=== PATIENT | male | born 1965 | race Caucasian/White ===

== ENCOUNTER 2023-09-03 17:13 | Emergency (ER) | payer OTHER, SELFPAY ==
[2023-09-03 17:15] VITALS: BP 127/96; BMI 32.5
--- NOTE | 2023-09-03 19:59 | ED.GENMED ---
History of Present Illness
General
Chief Complaint: Nose Bleed
Source: patient and family (Son as foreign language interpreter)
Time Seen by Provider: 09/03/23 19:31
Travel History
Have you had any contact with someone who has COVID-19?: No
Do you have any symptoms of coronavirus? Fever > 100 degrees, chills, cough, shortness of breath, sore throat, loss of taste or smell, muscle aches, or headache?: No
History of Present Illness
History of Present Illness:
Patient with sinus surgery about 2 weeks ago. Ongoing bleeding since then. Was started on antibiotics 5 days ago. He more continuously the last 12 hours. No other symptoms. No thinners except for asked
Past History
Past History
ED Past Medical History: CAD
ED Past Surgical History: Cardiac (Cardiac stent)
Social History
Tobacco: Former smoker
Review of Systems
Review of Systems
All Other Systems: Not applicable
Phy Exam
Physical Exam
Physical Exam:
General: Nontoxic appearing in no distress
Skin: Warm and dry, no rash
Neuro: Alert, nontoxic, grossly nonfocal
Psychiatric: Good eye contact and appropriate
ENT: Mild oozing from the right nares. Patient blowing his nose frequently. No severe dripping of blood. Posterior pharynx clear. Both nares with postoperative mucosal changes. Airways are open.
Course
Vital Signs
Initial and Last Documented VS:
Initial Vital Signs
Pulse Resp BP Pulse Ox
68 16 127/96 98
09/03/23 17:15 09/03/23 17:15 09/03/23 17:15 09/03/23 17:15
Last Documented Vital Signs
Pulse Resp BP Pulse Ox
68 16 127/96 98
09/03/23 17:15 09/03/23 17:15 09/03/23 17:15 09/03/23 17:15
MDM/Problems Addressed
Differential Diagnosis Includes:
Reviewed with our ENT prior to placing a Merisel packing. Surgery was 2 weeks ago.
*Critical Care Note
Total Time (30-74mins, 75-104mins- exclusive of procedures): Not Applicable
Update Note
Update Note:
Rechecked prior to discharge. No active bleeding. Slightly pink Mirasol. Stable.
ED Attending Note
-
Portions of this chart may have been created with voice recognition software.� Occasional wrong word or��sound alike� substitutions may have occurred due to the inherent limitations of voice recognition software.
Discharge Plan
Departure
Patient Disposition: Home (Routine Discharge)
Date of Disposition: 09/03/23
Time of Disposition: 20:20
Patient with high blood pressure during this ER visit?: Yes
Discharge Problem:
Epistaxis
Instructions: Nosebleeds (DC), BLOOD PRESSURE
Referrals:
Jelly Martinez MD [Family Provider] -
Activity Restrictions/Additional Instructions:
Call your ENT doctor tomorrow for close follow-up
Interventions
Interventions:
*Risk Screen - Suicide Last Done: 09/03/23 17:15
*General Assessment Last Done: 09/03/23 19:16
*Neglect/Abuse Screening Last Done: 09/03/23 17:15
ED- Fall Risk Assessment Last Done: 09/03/23 17:15
*ED COVID-19 Vaccine History Last Done: 09/03/23 19:16
*Nursing Disposition Last Done: 09/03/23 20:22
ED-EENT Assessment Last Done: 09/03/23 19:16
Discharge Date and Time
Discharge Date/Time: 09/03/23 20:23
Print Language: CHADIAN
== END 2023-09-03 20:23 | disposition home or self-care (01) ==
LOC: EMR 17:13
PROVIDERS: EMERGENCY PHYSICIAN Emergency Medicine; FAMILY PHYSICIAN Family Medicine
DX: R04.0 Epistaxis (principal); I25.10 Atherosclerotic heart disease of native coronary artery without angina pectoris; Z87.891 Personal history of nicotine dependence; Z95.5 Presence of coronary angioplasty implant and graft
CPT/HCPCS: 99282

== ENCOUNTER 2024-01-08 22:04 | Observation (INO) | payer OTHER, SELFPAY ==
[2024-01-08] VITALS (11 sets, daily range): BP systolic 122–149; BP diastolic 86–123; BMI 30.4
[2024-01-08 16:44] LABS: % Basophils 0.6 % (0-2); % Eosinophils 1.7 % (0-6); % Immature Granulocytes 0.3 % (0-0.5); % Lymphocytes 28.9 % (20.5-51.1); % Monocytes 7.8 % (1.7-9.3); % Neutrophils 60.7 % (42.2-75.2); Absolute Eosinophils 0.1 10^3/uL (0-0.7); Absolute Lymphocytes 1.9 10^3/uL (1.2-3.4); Absolute Monocytes 0.5 10^3/uL (0.1-0.6); Hematocrit 38.2 % (39.0-52.0); Hemoglobin 12.8 g/dL (13.0-18.0); Mean Corp Hgb Conc. 33.5 g/dL (33.0-37.0); Mean Corpuscular Hgb 28.1 pg (27.0-31.0); Mean Platelet Volume 10.3 fL (7.4-10.4); Nucleated Red Blood Cells % 0 % (-); Platelet Count 236 10^3/uL (130-400); Red Blood Cell Count 4.55 10^6/uL (4.70-6.10); Red Cell Dist. Width 13.6 % (11.5-14.5); White Blood Cell Count 6.5 10^3/uL (4.8-10.8)
[2024-01-08 16:54] LABS: INR 1.13; PT 14.4 Sec (11.4-14.6)
[2024-01-08 16:55] LABS: APTT 30.2 Sec (23.4-35.0)
[2024-01-08 16:59] LABS: ALT (SGPT) 28 U/L (0-50); AST (SGOT) 26 U/L (17-59); Albumin 4.3 g/dl (3.5-5.0); Alkaline Phosphatase 80 U/L (38-126); Blood Urea Nitrogen 25 mg/dl (9-20); Calcium 9.2 mg/dl (8.4-10.2); Carbon Dioxide 24 mmol/L (22-30); Chloride 104 mmol/L (98-107); Glucose 203 mg/dl (70-99); Potassium 4.2 mmol/L (3.5-5.1); Sodium 140 mmol/L (135-145); Total Bilirubin 0.4 mg/dl (0.2-1.3); Total Protein 6.9 g/dl (6.3-8.2); eGFR > 60.00
[2024-01-08 17:36] LABS: Troponin I < 0.012 ng/ml
--- NOTE | 2024-01-08 19:48 | ED.GENMED ---
History of Present Illness
General
Chief Complaint: Chest Pain
Source: patient and family (Son sponge maker)
Exam Limitations: other (Language barrier)
Time Seen by Provider: 01/08/24 19:34
History of Present Illness
History of Present Illness:
This is a 58 year old male that comes in with c/o left sided chest pain. States that this has been constant for the past couple of days. Son states that he is under a lot of stress. States that when he picks something up he has trouble breathing
and has left chest pain. States that he feels that his whole left side gets weak due to the sharp pain and it was like when he had a heart attack. State that this has pain has been constant. States that he has a headache and he feels dizzy when he
stands up for a second. States that he has also been nauseated. Denies any fever, chills, SOB, abd pain, vomiting, diarrhea, urinary burning.
Past History
Past History
ED Past Medical History: CAD, HTN and MN
ED Past Surgical History: Cardiac (Cardiac stent X 3) and Other (Nasal surgery)
Social History
Tobacco: Vaping
Alcohol: None
Personal:
Living: with family
Review of Systems
Review of Systems
All Other Systems: ROS reviewed and negative except as documented in HPI and ROS
Constitutional: Reports no symptoms; Denies fever or chills
EENT: Reports no symptoms
Respiratory: Denies cough or trouble breathing
Cardiac: Reports chest pain
ABD/GI: Reports nausea; Denies abdominal pain, vomiting or diarrhea
: Reports no symptoms; Denies dysuria, frequency or urgency
Musculoskeletal: Reports no symptoms
Skin: Reports no symptoms
Neurological: Reports dizzy and headache
Psychiatric: Reports no symptoms
Phy Exam
General Physical Exam
General Presentation: no apparent distress
General age: appears stated age
General Skin: warm and dry
General Habitus: normal
General Mental: alert
General Hydration: appears well hydrated
ENT Exam
ENT Exam: TM's normal, pharynx normal and neck supple
Eye Exam
Eye Exam: EOMI
Cardiovascular Exam
Cardiovascular Exam: no edema, normal peripheral pulses, bradycardia and other (Left sided chest pain reproducible with palpation over the muscle)
Pulmonary Exam
Pulmonary Exam: lungs clear, no respiratory distress, no rales, chest non tender, no crackles, no rhonchi, no wheezing and no cough
Gastrointestinal Exam
Gastrointestinal Exam: normal bowel sounds, non tender, soft, no organomegaly, no pulsatile mass and non distended
Musculoskeletal Exam
Musculoskeletal Exam: full ROM and no edema
Skin Exam
Skin Exam: normal color, warm/dry, no rash and no petechia
Psychiatric Exam
Psychiatric Exam: normal mood/affect
Scores
Heart Score for Chest Pain Patients
STEMI patient?: No
History: Moderately Suspicious
ECG: Normal
Age: >45 - <65 years
Risk Factors: >/= 3 Risk Factors or History of CAD
Troponin: </= Normal Limit
Heart Score for Chest Pain Patients: 4
Heart Score Risk: 20.3% MACE over next 6 weeks
Course
Orders/Labs/Results
Orders:
Orders
01/08/24 Breakfast
Cholesterol Lowering
At Your Request: Limited, Die Repairer Forging Required
Cholesterol Lowering: Sodium, 2 Gram
01/08/24 16:09
ECG [Electrocardiogram (*1)] Urgent
Reason for Study: Chest Pain
EKG- Treatment ONCE
01/08/24 16:31
Complete Blood Count/With Diff Urgent
Comprehensive Metabolic Panel Urgent
D-Dimer Urgent
Comment: ADD ON
Glycohemoglobin (HgbA1c) Urgent
Protime/PTT Urgent
Troponin I Urgent
01/08/24 19:44
Add On- LAB Urgent
Tests Added?: d-dimer
01/08/24 19:47
CR Chest - 2 Views Urgent
Comment:
Reason For Exam: Chest pain
01/08/24 19:50
Acetaminophen [Tylenol] 1,000 mg PO NOW STA
Ketorolac [Toradol] 30 mg IV NOW STA
01/08/24 19:54
Electrocardiogram (*1) Urgent
Reason for Study: Chest Pain
Other Reason for Exam: Repeat with Troponin
EKG- Treatment ONCE
01/08/24 20:11
Troponin I Urgent
01/08/24 20:19
Aspirin 325 mg PO NOW STA
Nitroglycerin Sublingual [Nitrostat (Sublingual)] 0.4 mg SL [id number] PRN
01/08/24 20:24
Consult Cardiology [CARDIOLOGY CONSULT] Urgent
Consulting Provider: Cosmo Gomes
Was physician already notified: Yes
01/08/24 21:00
Admit/Transfer Patient As Directed
Co-Sign Provider:
Level of Care: Observation services
Assign to:: Telemetry
Physician / Group: gretchen
Diagnosis: chest pain
Reason for Telemetry: Chest Pain syndromes
Date to Stop Telemetry: 01/10/24
Time to Stop Telemetry: 11:00
PRN Pain Medication Management As Directed
May give lesser potent ordered pain med per pt: Yes
preference::
Protocol:: Medication orders for pain may be administered in a
manner that supports deferring to patient preference
when the pt is:
- Requesting an ordered lesser potent pain medication.
Least to most potent pain medications are defined
as: acetaminophen < NSAID < tramadol < opioids
(morphine, oxycodone, hydromorphone).
- Requesting a lesser dose of the same medication IF
ORDERED.
- Requesting a less intrusive route of administration
if both routes are prescribed by the provider (PO <
IV).
01/08/24 21:01
Code Status As Directed
Resuscitation Status: Full Code
01/08/24 22:28
Activity As Directed
Activity Level: As Tolerated
INT (Intravenous Needle Therapy) As Directed
Comment: maintain peripheral IV access
Intake/ Output As Directed
Frequency: Per unit guidelines
Vital Signs As Directed
Frequency: q4h
Weight As Directed
Frequency: Weekly
DX Deep Vein Thrombosis Video Routine
01/09/24 01:59
Troponin I Q6H
Comment: at admit & Q3H for 3 total including ED draws, obtain ECG with each level
01/09/24 02:00
Electrocardiogram (*1) Q6H
Reason for Study: Chest Pain
Comment: at admission and Q3H for total of 3, to be done with each troponin
01/09/24 06:00
Basic Metabolic Panel IN AM
Cardiovascular Evaluation IN AM
Complete Blood Count/No Diff IN AM
01/09/24 08:00
Electrocardiogram (*1) Q6H
Reason for Study: Chest Pain
Comment: at admission and Q3H for total of 3, to be done with each troponin
Troponin I Q6H
Comment: at admit & Q3H for 3 total including ED draws, obtain ECG with each level
Acetaminophen [Tylenol] 1,000 mg PO TID
Aspirin Chewable [Low Strength Aspirin] 81 mg PO DAILY
Atorvastatin [Lipitor] 80 mg PO DAILY
Ezetimibe [Zetia] 10 mg PO DAILY
ISOSORBIDE MONOnitrate ER [Imdur (Extended Release)] 60 mg PO DAILY
Metoprolol Xl [Toprol Xl] 100 mg PO DAILY
01/09/24 18:00
Enoxaparin Sodium [Lovenox] 40 mg SC QPM
01/10/24 11:00
DC Protocol for Telemetry ONCE
Abnormal Lab Results
01/08/24
16:31
RBC 4.55 L 10^6/uL
(4.70-6.10)
Hgb 12.8 L g/dL
(13.0-18.0)
Hct 38.2 L %
(39.0-52.0)
BUN 25 H mg/dl
(9-20)
Glucose 203 H mg/dl
(70-99)
01/08/24 16:31
01/08/24 16:31
H/H slightly low. Dehydration. Glucose nonfasting. Troponin <0.012, PT 14.4 with INR 1.13, PTT 30.2
Second Troponin <0.012, D-dimer <0.27
Vital Signs
Initial and Last Documented VS:
Initial Vital Signs
Temp Pulse Resp BP Pulse Ox
98.1 F 58 18 133/87 98
01/08/24 16:23 01/08/24 16:23 01/08/24 16:23 01/08/24 16:23 01/08/24 16:23
Last Documented Vital Signs
Temp Pulse Resp BP Pulse Ox
98.1 F 61 15 145/81 97
01/08/24 16:23 01/09/24 01:00 01/09/24 01:00 01/09/24 01:00 01/08/24 22:52
MDM/Problems Addressed
Differential Diagnosis Includes:
Musculoskeletal chest wall pain, Coronary syndrome
MDM/Problems Addressed:
This is a 58 year old male that comes in with c/o left sided chest pain. Son who is interpreting states that this has been going on for a couple of days and that the pain has been constant. States that he he is under a lot of stress and that when he
picks something up on the left side that he feels pain and has trouble breathing.
Will check labs and call was placed to patient Construction Secretary.
Spoke with Dr. Holt [phone]. States that he knows this patient very well and the patient had called him and said that his symptoms were very similar to when he had his heart attack. States that his blood work as all normal the last time and
he ended up needing a stent in his RCA. He would suggested that the patient be admitted here for further evaluation and cardiac cath. Will admit patient with associate product manager consult.
Repeat ECG: rate 52. Sinus bradycardia, Left axis. 1st degree heart block Normal QRS,
Chronic conditions affecting care: CAD
Acute Exacerbation and/or Progression of Chronic Illness: CAD
*Radiology
Radiology exam reviewed: radiology read reviewed (Chest- Mild cardiomegaly without associated pulmonary edema. )
*Pulse Oximetry
Patient hypoxic: no
*EKG
Interpreted by ED Provider?: Yes
Heart Rate: 59
Rate: bradycardiac
Rhythm: sinus
Sagle: left axis deviation
Interval: normal interval
QRS Pattern: normal QRS
Ischemia: no ischemia
*Lamp Shade Joiner Interpretation
Rate: bradycardiac
Heart Rate: 54
Rhythm: sinus
*Critical Care Note
Total Time (30-74mins, 75-104mins- exclusive of procedures): Not Applicable
ED Attending Note
-
Portions of this chart may have been created with voice recognition software.� Occasional wrong word or��sound alike� substitutions may have occurred due to the inherent limitations of voice recognition software.
Discharge Plan
Departure
Patient Disposition: Admit
Date of Disposition: 01/08/24
Time of Disposition: 20:25
Admit to: Telemetry
Presentation/result/management discussed w/ accepting MD/DO: Hospitalist
Patient with high blood pressure during this ER visit?: Yes
Condition: Good
Covid-19: Not Applicable
Discharge Problem:
Chest pain
Interventions
Interventions:
*Risk Screen - Suicide Last Done: 01/08/24 16:23
*General Assessment Last Done: 01/08/24 16:23
*Neglect/Abuse Screening Last Done: 01/08/24 16:23
*ED COVID-19 Vaccine History Last Done: 01/08/24 16:23
ED- Cardiac Assessment Last Done: 01/08/24 19:44
[2024-01-08] MEDS: TORADOL 30 MG IV (20:11)
[2024-01-08] MEDS: TYLENOL 1000 MG PO (20:12)
[2024-01-08] MEDS: ASPIRIN 325 MG PO (20:28)
[2024-01-08] MEDS: NITROSTAT (SUBLINGUAL) 0.4 MG SL ×3 (20:28→22:42)
--- NOTE | 2024-01-08 20:40 | HPS.HSE ---
Addendum entered and electronically signed by Dominick Hill DO 01/08/24 21:41:
Patient seen and examined independently. Agree with findings and plan as set forth by JUAN Thomson.
Patient is a 58y M with PMH significant for ASCVD s/p prior stents who presents to ED complaining of L chest pain for the past 2 weeks. History obtained from patient and son via phone. Patient states that he has been having pain in the far L
chest / armpit area for the past 2 weeks. Pain radiates into his shoulder and L jaw. Pain is evident when he is lifting heavy objects - which he does fairly routinely for his job. Some sense of dyspnea - also with heavy lifting / exertion. No
N/V. Symptoms per patient are similar to prior TX. Son states that he had normal troponin and EKGs in the past - but was taken for cath and had occlusions / stent placements.
He had TX with stent placement about 3 years ago. He has had 2 additional stents since that time - most recently about one year ago.
He is followed by Cardiology at [facility].
Ass:
Atypical Chest Pain
ASCVD
Benign Hypertension
Dyslipidemia
Plan:
Observe overnight for further evaluation and treatment.
One additional troponin to complete set of 3 (undetectable thus far).
Continue current CV med regimen.
Cardiology evaluation for additional recommendations.
Follow for any new / worsening symptoms.
Pain control / supportive care - consider formal PT eval if cardiac etiology is ruled out.
Original Note:
Family Physician
-
Family Physician: Jelly Martinez
Chief Complaint
-
left sided chest pain
History of Present Illness
58 year old male that comes in with c/o left sided chest pain mainly under left armpit radiating to neck, shoulder, arm. denied any trauma. pain for one week but got worse last night. but picks heavy objects at work. patient stated it worse when
picking heavy stuff at work. denied any sob.stated DIAZ. dizzy when standing up. denied fever, chill, runny nose, congestion, cough. denied abdominal pain,n,v,d. denied dysuria or hematuria.
trop negative. admitting for further management.
Medical History
Past Medical History
Past Medical History: Reports Other
Additional Past Medical History:
CAD
HTn
HLD
Past Surgical History: Reports Other
Additional Past Surgical History:
cardiac stents x3
sinsu surgery
Social History
Tobacco: Vaping
Alcohol: Occasional
Drug: None
Personal:
Living: With Family
Family History
Family History: Not pertinent
Allergies / Home Medications
Allergies reflects when Allergies were last updated in [employer].
Home Medications with original date entered in [employer]
Allergy/Medication List:
Allergies
Allergy/AdvReac Type Severity Reaction Status Date / Time
No Known Allergies Allergy Verified 01/08/24 16:25
Home Medications
atorvastatin 80 mg tablet 80 mg PO DAILY 01/08/24
ezetimibe 10 mg tablet 10 mg PO DAILY 01/08/24
isosorbide mononitrate 60 mg tablet,extended release 24 hr 60 mg PO DAILY 01/08/24
metoprolol succinate 100 mg tablet,extended release 24 hr 100 mg PO DAILY 01/08/24
Review of Systems
-
Constitutional: Reports No Symptoms
EENT: Reports No Symptoms
Respiratory: Reports No Symptoms
Cardiac: Reports Chest Pain
Abdomen/GI: Reports No Symptoms
: Reports No Symptoms
Musculoskeletal: Reports No Symptoms
Skin: Reports No Symptoms
Neurological: Reports No Symptoms
Endocrine: Reports No Symptoms
Hematologic/Lymphatic: Reports No Symptoms
Psych: Reports No Symptoms
Physical Exam
Vital Signs
Vital Signs
Temp Pulse Resp BP Pulse Ox
98.1 F 53 18 136/86 98
01/08/24 16:23 01/08/24 20:15 01/08/24 20:15 01/08/24 20:28 01/08/24 20:15
Physical Exam
General: Well Developed, Well Nourished and No Apparent Distress
HEENT: NormoCephalic, Moist mucous membranes and Atraumatic
Respiratory: Clear
Cardiac: S1/S2 and Regular Rhythm; No Murmur or Rub
GI: Soft, Non Tender, Non Distended and Normal Bowel Sounds; No Organomegaly
Rectal: Deferred by Provider
Musculoskeletal: No Clubbing, No Cyanosis and No Edema
Skin: No Rash
Neuro: AO x 3 and Nonfocal/grossly intact
Psych: Calm
Laboratory Results
-
01/08/24 16:31
01/08/24 16:31
Laboratory Results
PT 14.4 Sec (11.4-14.6) 01/08/24 16:31
INR 1.13 01/08/24 16:31
APTT 30.2 Sec (23.4-35.0) 01/08/24 16:31
Total Bilirubin 0.4 mg/dl (0.2-1.3) 01/08/24 16:31
AST 26 U/L (17-59) 01/08/24 16:31
ALT 28 U/L (0-50) 01/08/24 16:31
Alkaline Phosphatase 80 U/L (38-126) 01/08/24 16:31
Troponin I < 0.012 ng/ml 01/08/24 16:31
Data Reviewed
-
Lab Data: Labs Reviewed by me
Impression/Plan
-
#chest pain likely musculoskeletal pain
-trop 0.12, trend trop
-EKG with sinus art, inferior infract
-continue to trend trop and EKG to r/o acute TX
-Tylenol for pain
-cardiology consulted
#hxt of CAD
-s/p cardiac stents
-asa continued
#HLD
-statin
#essential HTN
-metoprolol and Imdur ocntinued with hold parameter
#DVT prophylaxis
-Lovenox
#CODE status
-full code
[2024-01-08 20:45] LABS: Troponin I < 0.012 ng/ml
[2024-01-08 20:49] LABS: D-Dimer < 0.27 ug/mlFEU (0.00-0.50)
[2024-01-09] VITALS (16 sets, daily range): BP systolic 101–154; BP diastolic 53–100
[2024-01-09] MEDS: MORPHINE SULFATE 2 MG IV ×2 (00:02→08:04)
[2024-01-09] MEDS: TORADOL 10 MG IV ×2 (02:11→09:36)
[2024-01-09 02:46] LABS: Troponin I < 0.012 ng/ml
[2024-01-09 05:52] LABS: Hematocrit 37.4 % (39.0-52.0); Hemoglobin 12.6 g/dL (13.0-18.0); Mean Corp Hgb Conc. 33.7 g/dL (33.0-37.0); Mean Corpuscular Hgb 27.9 pg (27.0-31.0); Mean Corpuscular Volume 82.7 fL (80.0-94.0); Mean Platelet Volume 10.4 fL (7.4-10.4); Platelet Count 235 10^3/uL (130-400); Red Blood Cell Count 4.52 10^6/uL (4.70-6.10); Red Cell Dist. Width 13.6 % (11.5-14.5); White Blood Cell Count 6.8 10^3/uL (4.8-10.8)
[2024-01-09 06:11] LABS: Blood Urea Nitrogen 24 mg/dl (9-20); Calcium 9.4 mg/dl (8.4-10.2); Carbon Dioxide 24 mmol/L (22-30); Chloride 107 mmol/L (98-107); Estimated Creatinine Clearance 101 ml/min; Glucose 107 mg/dl (70-99); HDL Cholesterol 48 mg/dl; LDL Cholesterol, Calculated 43 mg/dl; Potassium 3.5 mmol/L (3.5-5.1); Sodium 143 mmol/L (135-145); Total Cholesterol 117 mg/dl (50-199); Triglyceride 133 mg/dl (10-149); Very Low Density Lipoprotein 26 mg/dl (0-30); eGFR > 60.00
[2024-01-09] MEDS: LIPITOR 80 MG PO (08:03)
[2024-01-09] MEDS: LOW STRENGTH ASPIRIN 81 MG PO (08:03)
[2024-01-09] MEDS: TOPROL XL 100 MG PO (08:03)
[2024-01-09] MEDS: TYLENOL 1000 MG PO (08:04)
[2024-01-09 08:05] LABS: Glycohemoglobin (HgbA1c) 5.7 % (4.0-5.6)
--- NOTE | 2024-01-09 08:11 | CON.CAR ---
Consultation
Consultation Request
Date/Time Consultation Requested: Jan 08, 2024
Date/Time Consultation Performed: Jan 09, 2024
Requesting Provider: Internal Medicine
Performing Provider: Cosmo Gomes
Reason for Consultation: chest pain
Medical History
-
Chief Complaint: chest pain
History of Present Illness:
58 yo male with PMH of CAD s/p stenting (3 total, 2 to RCA, unknown location for the last), HTN, HLD, who is here with 2 weeks of ongoing and worsening chest pain. His son is on the phone and acts as the maintenance person per patient request. Apparently,
this started two weeks ago at work and since that time it has become more frequent and more intense. The past two days it was occurring multiple times throughout the day and yesterday evening his primary gravel roofer asked that he go to the ED for
evaluation. The pain is left sided and radiation up to his neck, shoulder, and arm. He tells me this feels like the typical pain he has had when he has had AL in the past.
In the ED troponins were normal and cardiology was consulted.
Past Medical History
Past Medical History: CAD (3 stents), HTN and Hypercholesterolemia
Past Surgical History: Other (sinus )
Social History
Tobacco: Vaping
Alcohol: Occasional
Drug: None
Personal:
Living: With Family
Employment: Employed
Family History
Family History: Reviewed & Not Pertinent
Allergies / Home Medications
Allergy/AdvReac Type Severity Reaction Status Date / Time
No Known Allergies Allergy Verified 01/08/24 16:25
�Medication �Instructions �Recorded �Confirmed �Type
aspirin 81 mg chewable tablet 81 mg PO DAILY 01/08/24 01/08/24 History
atorvastatin 80 mg tablet 80 mg PO DAILY 01/08/24 01/08/24 History
ezetimibe 10 mg tablet 10 mg PO DAILY 01/08/24 01/08/24 History
isosorbide mononitrate 60 mg 60 mg PO DAILY 01/08/24 01/08/24 History
tablet,extended release 24 hr
metoprolol succinate 100 mg 100 mg PO DAILY 01/08/24 01/08/24 History
tablet,extended release 24 hr
Review of Systems
-
All other systems: Negative unless noted
Physical Exam
Vital Signs
Temp Pulse Resp BP Pulse Ox
98.1 F 77 16 139/76 97
01/08/24 16:23 01/09/24 08:03 01/09/24 06:00 01/09/24 08:03 01/09/24 03:15
Lab Results
01/09/24 05:34
01/09/24 05:34
Troponin I < 0.012 ng/ml 01/09/24 01:59
Physical Exam
General: Well Developed and No Apparent Distress
HEENT: Normocephalic
Respiratory: Clear and Non Labored Respirations
Cardiac: S1/S2 and Regular Rhythm
GI: Soft
Musculoskeletal: No Clubbing, No Cyanosis and No Edema
Skin: Warm and Dry
Neuro: AO x 3
Hematologic/Lymphatic: No Lymphadenopathy
Psych: Calm
Impression / Plan
-
58 yo male with PMH of CAD s/p stenting (3 total, 2 to RCA, unknown location for the last), HTN, HLD, who is here with 2 weeks of ongoing and worsening chest pain. Given his history of multiple stenting and increased frequency and intensity of CP
this is concerning for accelerating angina.
Accelerating angina/Unstable angina
- NPO cath today
- aspirin and statin
- lipid profile
- update TTE
- cont Imdur
HTN
- cont imdur and metoprolol
HLD
- cont statin ---> LDL is 43
- lipid profile
- cont ezetimibe
Data Reviewed
-
EKG: Tracing Personally Visualized and interpreted (sr)
Labs: Labs Reviewed by me
--- NOTE | 2024-01-09 09:52 | PTCARENOTE ---
pt aaox3. speaks broken persian. able to communicate to express needs and answer simple questions. states 8/10 pain in left axillary area. pain med given as ordered. nsr seen on monitor. pt npo
[2024-01-09] MEDS: ZETIA 10 MG PO (09:58)
[2024-01-09] MEDS: IMDUR (EXTENDED RELEASE) 60 MG PO (09:58)
[2024-01-09] MEDS: NITROSTAT (SUBLINGUAL) 0.4 MG SL (10:04)
[2024-01-09 10:20] LABS: Troponin I < 0.012 ng/ml
[2024-01-09] MEDS: DILAUDID 0.25 MG IV (10:46)
--- NOTE | 2024-01-09 12:35 | W.PN.HOSP.TC ---
Today's Communication/Plan
-
Continue cardiac meds
N.p.o. for cardiac catheterization
Assessment / Plan
Assessment / Plan
General: Well Developed, Well Nourished and No Apparent Distress
HEENT: NormoCephalic, Moist mucous membranes and Atraumatic
Respiratory: Clear
Cardiac: S1/S2 and Regular Rhythm; No Murmur or Rub
GI: Soft, Non Tender, Non Distended and Normal Bowel Sounds; No Organomegaly
Rectal: Deferred by Provider
Musculoskeletal: No Clubbing, No Cyanosis and No Edema
Skin: No Rash
Neuro: AO x 3 and Nonfocal/grossly intact
Psych: Calm
# Chest pain likely atypical.
-Troponin has remained flat/negative.
-EKG with sinus art, inferior infract
-Echocardiogram. NPO. Plan for cardiac catheterization today.
-Pain control. Continue with home regimen. May need to consider increasing dose of isosorbide to 90 mg if no improvement.
-cardiology consulted A1c 5.7. LDL of 43.
#hxt of CAD
-s/p cardiac stents
-asa continued
#HLD
-statin
#essential HTN
-metoprolol and Imdur
#DVT prophylaxis
-Lovenox
#CODE status
-full code
Discussed with patient's son at bedside in detail
Anticipated Discharge: Within 24 hours
Subjective/Interval History
-
Date of Service: January 09, 2024
states of chest pain/discomfort
Objective Data
-
Labs:
Laboratory Results
01/09/24
05:34
WBC 6.8
Hgb 12.6 L
Hct 37.4 L
Plt Count 235
Sodium 143
Potassium 3.5
Chloride 107
Carbon Dioxide 24
BUN 24 H
Creatinine 0.9
Glucose 107 H
Calcium 9.4
Vital Signs:
Vital Signs
Temp Pulse Resp BP Pulse Ox
98.3 F 57 17 137/87 96
01/09/24 11:14 01/09/24 11:14 01/09/24 11:14 01/09/24 11:14 01/09/24 11:14
--- NOTE | 2024-01-09 13:49 | PTCARENOTE ---
pt brought to manager cardiac cath with damien.
--- NOTE | 2024-01-09 15:18 | ITS.CL.CATH ---
[employer] - Catheterization
Cardiac Catheterization
Procedure Report:
CARDIAC CATHETERIZATION REPORT
Date of Procedure: 01/09/2024
Referring: Cosmo Gomes M.D.
INDICATION: Known coronary artery disease, chest pain concerning for accelerating angina.
PROCEDURE:
1. Left heart catheterization.
2. Coronary angiography.
ACCESS:
6 Burmese right radial artery.
CATHETERS:
1. 5 Burmese JR4.
2. 5 Burmese JL 3.5.
HEMODYNAMIC DATA
Weight (kg): 93.0
AO (s/d/x, mmHg): 120/79/96
LV (s/x mmHg): 123/18
LEFT VENTRICULOGRAPHY: Not performed.
CORONARY ANGIOGRAPHY
Dominance: Right.
Left Main: Large size, trifurcating vessel. There is no coronary artery disease.
LAD: Large size vessel giving rise to 1 significant diagonal. There are luminal irregularities throughout the entire body of the vessel. Of note, while there is no obvious obstruction, there is relatively slow flow, particularly in the distal
vascular bed.
Ramus: Medium to large size vessel which subsequently divides into 3 daughter branches. There are minor luminal irregularities.
Circumflex: Large size, nondominant vessel giving rise to 1 significant obtuse marginal. This marginal subsequently bifurcates into 2 medium sized branches. There are luminal irregularities throughout the body of the circumflex.
RCA: Medium size, dominant vessel. Patent stents are observed in the proximal vessel as well as the mid vessel. There is no obvious obstruction though relatively slow flow in the distal vasculature.
INTERVENTION(S)
None.
Closure Device: Vascular band.
Radiation (mGy): 364.34
DAP (cm2.Gy): 33.6176
Fluoroscopy time (minutes): 2.7
Sedation time (minutes): 14
CONCLUSIONS
1. Right dominant circulation with patent stents in the proximal and mid RCA, luminal irregularities throughout the remainder of the coronary circulation and relatively slow flow and spite of the lack of any obstructive epicardial coronary artery
disease, suspicious for endothelial dysfunction/microvascular angina.
2. Mildly elevated filling pressures (LVEDP = 18 mmHg at 93.0 kg).
RECOMMENDATIONS:
1. Expectant management after cardiac catheterization via right radial approach.
2. Limited weight bearing on the right wrist for one week.
3. Continue antianginal therapy with metoprolol and isosorbide mononitrate.
4. Add amlodipine 5 mg daily for vascular relaxation.
5. There may be a component of GERD, in which case the patient would benefit from PPI.
Copy to: Cosmo Gomes M.D., Jelly Martinez M.D.
Alejandro Forte DO, FACC, FACP
--- NOTE | 2024-01-09 16:00 | W.DCSUMMARY ---
Discharge Summary
Discharge Data
Date of Admission: 01/08/24
Date of Discharge: 01/09/24
-
Pending Results: No
Hospital Course
58-year-old male past medical history of hypertension, hyperlipidemia, CAD status post stents who is presenting from home with chest pain. Chest pains likely atypical. Patient underwent blood work with troponin which was found to be flat/negative.
Patient was eval by cardiology and underwent cardiac catheterization. Cardiac cath showed right dominant circulation with patent stents in the proximal and mid RCA, luminal irregularities throughout the remainder of the coronary circulation and
relatively slow flow and spite of the lack of any obstructive epicardial coronary artery disease, suspicious for endothelial dysfunction/microvascular angina.. Mildly elevated filling pressures (LVEDP = 18 mmHg at 93.0 kg). Discussed case with
interventional cardiology Dr. Forte and patient was started on 5 mg of Norvasc and also recommended to be started on PPI post cardiac cath. No cardiac intervention was required. Per cardiology patient can be discharged home. Discussed case with
patient's son once again and and all in agreement for discharge home with recommendation to follow-up outpatient with primary retail custodial associate and/or primary doctor as being started on Norvasc for blood pressure management. All patient's and son
questions were answered.
Discharge Plan
-
Patient Disposition: Home (Routine Discharge)
Discharge Diagnosis/Procedures: Chest pain status post Cardiac cath
Condition: Fair
Diet: Low Cholesterol
Activity: Other activity
Additional Activity: Limited weight bearing on the right wrist for one week.
Driving Restrictions: No driving for 24 hours
Stand Alone Forms: DC Instructions- Cath/EP Lab
Referrals:
Jelly Martinez MD [Family Provider] -
Prescriptions:
New
amlodipine 5 mg Tablet
5 mg PO DAILY 30 Days Qty: 30 0RF
pantoprazole [Protonix] 40 mg tablet,delayed release (DR/EC)
40 mg PO DAILY 30 Days Qty: 30 0RF
Continued
atorvastatin 80 mg Tablet
80 mg PO DAILY
metoprolol succinate 100 mg Tablet Extended Release 24 Hr
100 mg PO DAILY
isosorbide mononitrate 60 mg Tablet Extended Release 24 Hr
60 mg PO DAILY
ezetimibe 10 mg Tablet
10 mg PO DAILY
aspirin 81 mg Tablet,Chewable
81 mg PO DAILY
Discontinued
ibuprofen 800 mg Tablet
800 mg PO Q6HPRN PRN (Reason: mild pain)
Discharge Orders:
Discharge Patient (As Directed); Ordered 01/09/24
Ordered By: Kareem Hardy
Discharge Date and Time
Print Language: ROMANSH
--- NOTE | 2024-01-09 18:17 | CM ---
Late entry:
Chart reviewed. CM introduced self and role. Patient lives at home with and son. He is independent. He works FT. He drives. No +SDOHs. Does not own any DME. Has an active PCP and pharmacy.
== END 2024-01-09 16:50 | disposition home or self-care (01) ==
LOC: CATH-IN 22:04
PROVIDERS: Clinical Nurse Specialist Family Health; Emergency Medicine; Registered Nurse; ADMITTING PHYSICIAN Hospitalist; ATTENDING PHYSICIAN Hospitalist; CONSULT PHYSICIAN Internal Medicine Cardiovascular Disease; EMERGENCY PHYSICIAN Emergency Medicine; FAMILY PHYSICIAN Family Medicine
DX: R07.89 Other chest pain (principal); R53.1 Weakness; R11.0 Nausea; R42 Dizziness and giddiness; R51.9 Headache, unspecified; I25.110 Atherosclerotic heart disease of native coronary artery with unstable angina pectoris; I11.9 Hypertensive heart disease without heart failure; R00.1 Bradycardia, unspecified; E78.00 Pure hypercholesterolemia, unspecified; M54.2 Cervicalgia; M25.512 Pain in left shoulder; M79.602 Pain in left arm; F17.290 Nicotine dependence, other tobacco product, uncomplicated; I25.2 Old myocardial infarction; Z95.5 Presence of coronary angioplasty implant and graft
CPT/HCPCS: 71046; 80048; 80053; 80061; 83036; 84484; 85025; 85027; 85379; 85610; 85730; 93005; 93458; 96374; 99285; C1894; G0378; Q9967

== ENCOUNTER 2024-05-30 15:34 | Emergency (ER) | payer OTHER, SELFPAY ==
[2024-05-30 15:49] VITALS: BP 139/103
--- NOTE | 2024-05-30 16:05 | ED.GENMED ---
ED Provider Triage
<Halina Owen PA-C - Last Filed: 05/30/24 16:07>
-
Patient seen by provider in Triage?: Seen in Triage
58-year-old male with a history of hypertension, hyperlipidemia, CAD, presents for about a week of abdominal distention and he is worried about his liver. He does not drink. He does not take Tylenol. He also feels little short of breath but
thinks maybe he is anxious.
A medical screening examination has been initiated by a qualified medical provider. Based on the assessment performed at this time, it has been determined that an emergent medical condition may exist and the patient has been informed that further
medical evaluation and possible additional diagnostic testing may be needed.
HPI: This is a medical evaluation conducted in person to initiate diagnostic evaluation and provide initial therapeutics. Please see further documentation by the treating clinician.
GENERAL: Alert , in no apparent distress
No scleral icterus
ENT: No visible abnormalities
LUNGS: No acute respiratory distress
Abdomen mild distention, I do not appreciate that it is all fluid but is difficult during a seated exam, slight right upper quadrant tenderness
NEUROLOGICAL: Alert and oriented
SKIN: Skin intact. No visible changes.
MUSCULOSKELETAL: Moving extremities normally
PSYCH: Normal and appropriate interaction.
58-year-old male with known coronary artery disease, not a drinker, presents for abdominal distention, he believes it is fluid. He also has a little bit of abdominal pain and some shortness of breath. On exam he does have slightly protuberant
abdomen, does not feel tense, I am not sure of fluid. Will workup with labs, ultrasound, chest x-ray
History of Present Illness
<Halina Owen PA-C - Last Filed: 05/30/24 16:07>
General
Chief Complaint: Breathing Problem
Time Seen by Provider: 05/30/24 20:31
<Olena Magdaleno DO - Last Filed: 05/31/24 03:07>
History of Present Illness
History of Present Illness:
58-year-old male history of CAD, hypertension, hyperlipidemia, GERD, chronic NSAID use for chronic neck pain presenting with epigastric discomfort worsening over the past 4 days. Patient states that he feels full very quickly after eating meals.
Patient reports of burning upper abdominal pain. Patient denies chest pain. Pt states he does not feel like he is getting enough air in his lungs, but denies shortness of breath. Patient denies fever, chills, nausea or vomiting. Patient states
that he feels like his abdomen is more bloated than normal. Patient denies smoking. Patient reports history of CAD, states this does not feel like his previous heart attacks. Patient son states that patient has a GI appointment in July.
Past History
<Halina Owen PA-C - Last Filed: 05/30/24 16:07>
Past History
ED Past Medical History: CAD, HTN and NM
ED Past Surgical History: Cardiac (Cardiac stent X 3) and Other (Nasal surgery)
Social History
Tobacco: Vaping
Alcohol: None
Personal:
Living: with family
Phy Exam
<Olena Magdaleno DO - Last Filed: 05/31/24 03:07>
Physical Exam
Physical Exam:
General: Alert, no acute distress
Head: NCAT
Eyes: clear conjunctiva
Neck: supple
Cardiac: regular rate and rhythm, no murmur
Lungs: clear to auscultation bilaterally. No wheezes, rales, or rhonchi. Speaking full unlabored sentences. No respiratory distress.
Abdomen: soft, nondistended, right upper quadrant and epigastric tenderness. No rebound or guarding.
MSK: no lower extremity edema bilaterally. No deformity
Skin: warm, dry
Neuro: Alert and oriented x3. no focal deficits
Course
<Halina Owen PA-C - Last Filed: 05/30/24 16:07>
Orders/Labs/Results
Orders:
Orders
05/30/24 15:35
Electrocardiogram (*1) Urgent
Reason for Study: Shortness of Breath
EKG- Treatment ONCE
05/30/24 16:04
US Abdomen Complete/Upper Urgent
Comment:
Reason For Exam: abdominal distension
05/30/24 16:05
CR Chest - 2 Views Urgent
Comment:
Reason For Exam: sob, fluid in abdomen
05/30/24 16:14
Complete Blood Count/With Diff Urgent
Comprehensive Metabolic Panel Urgent
Lipase Urgent
NT-proBNP Urgent
PTT Urgent
Prothrombin Time Urgent
Troponin I Urgent
05/30/24 21:00
Famotidine [Pepcid] 40 mg PO NOW STA
Mag Hydrox/Al Hydrox/Simeth [Maalox] 30 ml PO NOW STA
Abnormal Lab Results
05/30/24
16:14
RBC 4.53 L 10^6/uL
(4.70-6.10)
BUN 24 H mg/dl
(9-20)
Glucose 104 H mg/dl
(70-99)
05/30/24 16:14
05/30/24 16:14
Vital Signs
Initial and Last Documented VS:
Initial Vital Signs
Temp Pulse Resp BP Pulse Ox
98.2 F 73 20 139/103 97
05/30/24 15:49 05/30/24 15:49 05/30/24 15:49 05/30/24 15:49 05/30/24 15:49
Last Documented Vital Signs
Temp Pulse Resp BP Pulse Ox
98.2 F 55 16 136/105 98
05/30/24 15:49 05/30/24 21:11 05/30/24 21:11 05/30/24 21:11 05/30/24 21:11
&;Olena Magdaleno DO - Last Filed: 05/31/24 03:07>
Orders/Labs/Results
Orders:
Orders
05/30/24 15:35
Electrocardiogram (*1) Urgent
Reason for Study: Shortness of Breath
EKG- Treatment ONCE
05/30/24 16:04
US Abdomen Complete/Upper Urgent
Comment:
Reason For Exam: abdominal distension
05/30/24 16:05
CR Chest - 2 Views Urgent
Comment:
Reason For Exam: sob, fluid in abdomen
05/30/24 16:14
Complete Blood Count/With Diff Urgent
Comprehensive Metabolic Panel Urgent
Lipase Urgent
NT-proBNP Urgent
PTT Urgent
Prothrombin Time Urgent
Troponin I Urgent
05/30/24 21:00
Famotidine [Pepcid] 40 mg PO NOW STA
Mag Hydrox/Al Hydrox/Simeth [Maalox] 30 ml PO NOW STA
Abnormal Lab Results
05/30/24
16:14
RBC 4.53 L 10^6/uL
(4.70-6.10)
BUN 24 H mg/dl
(9-20)
Glucose 104 H mg/dl
(70-99)
05/30/24 16:14
05/30/24 16:14
Vital Signs
Initial and Last Documented VS:
Initial Vital Signs
Temp Pulse Resp BP Pulse Ox
98.2 F 73 20 139/103 97
05/30/24 15:49 05/30/24 15:49 05/30/24 15:49 05/30/24 15:49 05/30/24 15:49
Last Documented Vital Signs
Temp Pulse Resp BP Pulse Ox
98.2 F 55 16 136/105 98
05/30/24 15:49 05/30/24 21:11 05/30/24 21:11 05/30/24 21:11 05/30/24 21:11
<Olena Magdaleno DO - Last Filed: 05/31/24 03:07>
MDM/Problems Addressed
Differential Diagnosis Includes:
GERD, PUD, cholecystitis, pancreatitis, NSTEMI, pneumonia, chf
MDM/Problems Addressed:
58-year-old male presenting with burning upper abdominal discomfort and early satiety for the past 4 days. Patient states that he is on chronic ibuprofen 800 mg for chronic neck pain. Heart regular rate rhythm, lungs clear, abdomen soft
nondistended right upper quadrant tenderness palpation. Will obtain GI workup, send troponin/EKG due to history of CAD
Results reviewed. White count 6.4. Hemoglobin 13.3. Creatinine, electrolytes, LFTs, troponin, lipase within normal limits. Abdominal ultrasound reviewed, no acute cholecystitis. No abdominal ascites. Liver within normal limits. Chest x-ray
shows no acute consolidation or focal infiltrate. No pleural effusion or pneumothorax.
Discussed results with patient and son at bedside. Suspect PUD. Recommended take Pepcid/Maalox as needed for pain. Recommended to stop taking ibuprofen. Recommended follow-up with GI. Discussed return precautions. Stable for discharge with GI
follow-up
<Olena Magdaleno DO - Last Filed: 05/31/24 03:07>
*EKG
Interpreted by ED Provider?: Yes (EKG shows normal sinus rhythm at 63 bpm with AL 184 QTc 431 no STEMI)
ED Attending Note
<Halina Owen PA-C - Last Filed: 05/30/24 16:07>
-
Portions of this chart may have been created with voice recognition software.� Occasional wrong word or��sound alike� substitutions may have occurred due to the inherent limitations of voice recognition software.
Discharge Plan
Departure
Patient Disposition: Home (Routine Discharge)
Date of Disposition: 05/30/24
Time of Disposition: 21:00
Patient with high blood pressure during this ER visit?: Yes
Discharge Problem:
Acute upper abdominal pain
Instructions: Abdominal pain in adults - Discharge instructions, BLOOD PRESSURE
Prescriptions:
No Action
atorvastatin 80 mg Tablet
80 mg PO DAILY
metoprolol succinate 100 mg Tablet Extended Release 24 Hr
100 mg PO DAILY
isosorbide mononitrate 60 mg Tablet Extended Release 24 Hr
60 mg PO DAILY
ezetimibe 10 mg Tablet
10 mg PO DAILY
aspirin 81 mg Tablet,Chewable
81 mg PO DAILY
amlodipine 5 mg Tablet
5 mg PO DAILY 30 Days Qty: 30 0RF
pantoprazole [Protonix] 40 mg tablet,delayed release (DR/EC)
40 mg PO DAILY 30 Days Qty: 30 0RF
Referrals:
Beverly Bowden MD [Active] -
Activity Restrictions/Additional Instructions:
Take Pepcid and Maalox (which you can purchase over the counter at local pharmacy) as needed for burning abdominal pain
Stop taking Ibuprofen as it can cause ulcers/stomach irritation. Continue taking other medications as prescribed
Follow up with GI
Return to the emergency department for black/bloody stools, persistent vomiting or new/worsening symptoms
Interventions
Interventions:
*Risk Screen - Suicide Last Done: 05/30/24 15:49
*General Assessment Last Done: 05/30/24 21:14
*Neglect/Abuse Screening Last Done: 05/30/24 15:49
ED- Fall Risk Assessment Last Done: 05/30/24 21:14
*ED COVID-19 Vaccine History Last Done: 05/30/24 15:49
*Nursing Disposition Last Done: 05/30/24 21:17
ED- Cardiac Assessment Last Done: 05/30/24 21:14
ED- Pulmonary Assessment Last Done: 05/30/24 21:14
Discharge Date and Time
Discharge Date/Time: 05/30/24 21:18
Print Language: [id number]
[2024-05-30 16:27] LABS: % Basophils 0.6 % (0-2); % Eosinophils 1.4 % (0-6); % Immature Granulocytes 0.3 % (0-0.5); % Lymphocytes 37.9 % (20.5-51.1); % Monocytes 8.3 % (1.7-9.3); % Neutrophils 51.5 % (42.2-75.2); Absolute Eosinophils 0.1 10^3/uL (0-0.7); Absolute Lymphocytes 2.4 10^3/uL (1.2-3.4); Absolute Monocytes 0.5 10^3/uL (0.1-0.6); Absolute Neutrophils 3.3 10^3/uL (1.4-6.5); Hematocrit 39.3 % (39.0-52.0); Hemoglobin 13.3 g/dL (13.0-18.0); Mean Corp Hgb Conc. 33.8 g/dL (33.0-37.0); Mean Corpuscular Hgb 29.4 pg (27.0-31.0); Mean Corpuscular Volume 86.8 fL (80.0-94.0); Mean Platelet Volume 10.2 fL (7.4-10.4); Nucleated Red Blood Cells % 0 % (-); Platelet Count 234 10^3/uL (130-400); Red Blood Cell Count 4.53 10^6/uL (4.70-6.10); Red Cell Dist. Width 13.2 % (11.5-14.5); White Blood Cell Count 6.4 10^3/uL (4.8-10.8)
[2024-05-30 16:36] LABS: ALT (SGPT) 36 U/L (0-50); AST (SGOT) 27 U/L (17-59); Albumin 4.3 g/dl (3.5-5.0); Alkaline Phosphatase 98 U/L (38-126); Blood Urea Nitrogen 24 mg/dl (9-20); Calcium 10.1 mg/dl (8.4-10.2); Carbon Dioxide 29 mmol/L (22-30); Chloride 103 mmol/L (98-107); Glucose 104 mg/dl (70-99); Lipase 99 U/L (23-300); Potassium 4.3 mmol/L (3.5-5.1); Sodium 139 mmol/L (135-145); Total Bilirubin 0.4 mg/dl (0.2-1.3); Total Protein 7.1 g/dl (6.3-8.2); eGFR > 60.00
[2024-05-30 16:48] LABS: NT-proBNP 31.4 pg/ml; Troponin I < 0.012 ng/ml
[2024-05-30 17:09] LABS: INR 0.98; PT 13.5 Sec (11.4-14.6)
[2024-05-30 17:12] LABS: APTT 28.1 Sec (23.4-35.0)
[2024-05-30] MEDS: PEPCID 40 MG PO (21:10)
[2024-05-30 21:11] VITALS: BP 136/105
== END 2024-05-30 21:18 | disposition home or self-care (01) ==
LOC: EMR 15:34
PROVIDERS: Physician Assistant; EMERGENCY PHYSICIAN Emergency Medicine; FAMILY PHYSICIAN Family Medicine
DX: R10.10 Upper abdominal pain, unspecified (principal); I25.10 Atherosclerotic heart disease of native coronary artery without angina pectoris; K21.9 Gastro-esophageal reflux disease without esophagitis; E78.00 Pure hypercholesterolemia, unspecified; I10 Essential (primary) hypertension; F17.290 Nicotine dependence, other tobacco product, uncomplicated; Z95.5 Presence of coronary angioplasty implant and graft
CPT/HCPCS: 99284; 71046; 76700; 80053; 83690; 83880; 84484; 85025; 85610; 85730; 93005